=== PATIENT | male | born 1980 | race African-American/Black ===

== ENCOUNTER 2020-10-12 11:17 | Emergency (ER) | payer OTHER ==
[~2020-10-12] VITALS: Ht 203.2 cm; Wt 87.9 kg
[2020-10-12 14:28] VITALS: BP 128/93
== END 2020-10-12 14:29 | disposition home or self-care (01) ==
LOC: M ED 11:17
DX: F43.0 Acute stress reaction (principal); F17.200 Nicotine dependence, unspecified, uncomplicated